=== PATIENT | male | born 1960 | race Caucasian/White ===

== ENCOUNTER 2020-01-21 13:56 | Emergency (ER) | payer BC, SELFPAY ==
[2020-01-21] MEDS ORDERED: Lidocaine 1% w/Epinephrine 1:100K 20 ML VIAL ONE (14:07)
[2020-01-21] MEDS ORDERED: Bacitracin 1 PK ONE (14:22)
[2020-01-21] MEDS ORDERED: Amoxicillin/Potassium Clav 875 MG TAB ONE (14:28)
== END 2020-01-21 14:41 | disposition home or self-care (01) ==
LOC: MADERS 13:56
DX: S51.851A Open bite of right forearm, initial encounter (principal); S51.811A Laceration without foreign body of right forearm, initial encounter; F41.9 Anxiety disorder, unspecified; F32.9 Major depressive disorder, single episode, unspecified; W54.0XXA Bitten by dog, initial encounter
CPT/HCPCS: 12002